=== PATIENT | female | born 1980 | race Caucasian/White ===

== ENCOUNTER → 2021-08-26 09:11 | Outpatient (CLI) | payer BC, SELFPAY ==
--- NOTE | ~2021-08-26 | MMUS_ITS ---
EXAMINATION: MM diagnostic tatyana BI w daniel, US breast BI complete HISTORY: Palpable left breast abnormality by clinical examination.. TECHNIQUE: Additional 3-D tomosynthesis images of the breasts were performed and synthetic 2-D images were generated. CAD analysis was submitted and interpreted. High resolution bilateral complete breas t ultrasound was performed. COMPARISON: None BREAST PARENCHYMAL COMPOSITION: The breasts are heterogenously dense, which may obscure small masses FINDINGS: MAMMOGRAPHIC FINDINGS: There is a focal asymmetry centrally in the right breast, middle third, seen on CC view. There are no suspicious masses, calcifications or architectural distortion in the left breast to suggest malignan cy. ULTRASOUND: Complete bilateral US of all 4 quadrants of the breasts and retroareolar region was reviewed. Right breast ultrasound: At 11:00, 6 cm from the nipple there is a 5 mm hypoechoic oval mass with enh anced through transmission and no internal vascularity, likely corresponding to the mammographic asym metry. This is likely benign. No suspicious solid or cystic masses of the left breast. IMPRESSION: 1. Probable benign 5 mm right breast mass at 11:00, 6 cm from the nipple. No evidence for malignancy in the left breast. 2. Recommend 6 month follow-up diagnostic right mammogram and ultrasound BI-RADS category 3, probably benign findings. Reviewed, dictated and finalized at location A. IMPRESSION: 1. Probable benign 5 mm right breast mass at 11:00, 6 cm from the nipple. No ev idence for malignancy in the left breast. 2. Recommend 6 month follow-up diagnostic right mammogram and ultrasound BI-RADS category 3, probably benign findings.
== END ==
PROVIDERS: PCP Family Medicine; Visit Provider Nurse Practitioner
DX: N64.59 Other signs and symptoms in breast (principal); R92.8 Other abnormal and inconclusive findings on diagnostic imaging of breast
CPT/HCPCS: 76641; 77062; 77066; G0279

== ENCOUNTER → 2021-09-08 10:07 | Outpatient (CLI) | payer BC, SELFPAY ==
--- NOTE | ~2021-09-08 | XR_ITS ---
XR shoulder RT min 2V DATE: 09/08/2021 10:48 INDICATION: Right shoulder pain TECHNIQUE: 4 views COMPARISON: None FINDINGS: No fracture or dislocation, periosteal reaction or bone destruction. Normal alignment at th e acromioclavicular and glenohumeral joints. No abnormal soft tissue calcification. IMPRESSION: Negative Reviewed, dictated and finalized at location B. IMPRESSION: Negative
== END ==
PROVIDERS: PCP Family Medicine
DX: M25.511 Pain in right shoulder (principal)
CPT/HCPCS: 73030

== ENCOUNTER → 2022-03-14 09:17 | Outpatient (CLI) | payer BC, SELFPAY ==
--- NOTE | ~2022-03-14 | MMUS_ITS ---
EXAMINATION: MM diagnostic tatyana RT w daniel, US breast RT limited HISTORY: Six-month follow-up of probable benign 5 mm right breast mass at 11:00 6 cm from nipple TECHNIQUE: Full field and spot right 3-D tomosynthesis images were performed and synthetic 2-D images were generated. CAD analysis was submitted and interpreted. High resolution upper inner and upper ou ter quadrant right breast ultrasound was performed. COMPARISON: 08/26/2021 bilateral screening mammogram BREAST PARENCHYMAL COMPOSITION: There are scattered areas of fibroglandular density. FINDINGS: MAMMOGRAPHIC FINDINGS: No suspicious mammographic mass or architectural distortion, malignant calcification, skin thickening or retraction of the right breast is detected. ULTRASOUND: 11:00 6 cm from nipple: 3.3 x 3.9 x 4.5 mm sonolucency with through transmission posterior enhancemen t, no internal vascularity, most likely a small cyst or benign mass this is stable since 08/26/2021. 10:00 1 cm from nipple: Parallel circumscribed 1.9 x 4.1 x 2.5 mm sonolucency consistent with small c yst 9:00 3 cm from nipple: Parallel circumscribed 2.2 x 7.1 x 4.1 mm sonolucency, without posterior shado wing, benign in appearance IMPRESSION: 1. Benign findings. No mammographic evidence of malignancy 2. Routine annual mammographic screening is recommended BI-RADS Category 2: Benign finding(s). Reviewed, dictated and finalized at location A. [employer] IMPRESSION: 1. Benign findings. No mammographic evidence of malignancy 2. Routine annual mammographic screening is recommended BI-RADS Category 2: Benign finding(s).
== END ==
PROVIDERS: PCP Family Medicine; Visit Provider Obstetrics & Gynecology Gynecology
DX: N63.10 Unspecified lump in the right breast, unspecified quadrant (principal); R92.8 Other abnormal and inconclusive findings on diagnostic imaging of breast
CPT/HCPCS: 76642; 77061; 77065; G0279

== ENCOUNTER 2022-05-26 14:44 | Outpatient (CLI) | payer BC, SELFPAY ==
--- NOTE | ~2022-05-26 | XR_ITS ---
EXAMINATION: XR_[id number]_CR DATE: 05/26/2022 15:13 INDICATION: Neck pain. TECHNIQUE: 4 views of cervical spine were obtained. COMPARISON: None. FINDINGS: There is mild kyphosis of cervical spine. There is 7 degrees levocurvature of cervicothorac ic spine. Vertebral body heights and intervertebral disc heights are normal. There is multilevel mild facet joint osteoarthritis. No central canal stenosis or prevertebral soft tissue swelling. IMPRESSION: 1. Mild cervical spondylosis. Reviewed, dictated and finalized at location A.
== END 2022-05-26 14:45 | disposition home or self-care (01) ==
LOC: ANHIMG 14:51
PROVIDERS: PCP Family Medicine
DX: M47.892 Other spondylosis, cervical region (principal)
CPT/HCPCS: 72040

== ENCOUNTER → 2022-12-01 10:13 | Outpatient (CLI) | payer BC, SELFPAY ==
--- NOTE | ~2022-12-01 | US_ITS ---
Pelvic ultrasound. Clinical History: Pelvic pain Technique: Realtime transabdominal and transvaginal scanning of the pelvis was performed. Color flow Doppler and Doppler spectral analysis were performed. Findings: The uterus is anteverted. The endometrial stripe has a thickness of 4 mm. No focal mass is identified. The right ovary measures 1.9 x 2.2 x 1.9 cm. No significant right ovarian or adnexal mass is seen. The left ovary measures 2.5 x 2.5 x 2.4 cm. No significant left ovarian or adnexal mass is seen. Vascular flow present in both ovaries on Doppler spectral analysis. There is no evidence of free fluid in the cul de sac. Impression: Unremarkable pelvic ultrasound. Reviewed, dictated and finalized at [facility]. Impression: Unremarkable pelvic ultrasound.
== END ==
PROVIDERS: PCP Family Medicine; Visit Provider Nurse Practitioner
DX: R10.2 Pelvic and perineal pain (principal)
CPT/HCPCS: 76856

== ENCOUNTER 2022-12-24 16:41 | Emergency (ER) | payer BC, SELFPAY ==
--- NOTE | ~2022-12-24 | XR_ITS ---
EXAMINATION: XR chest 2V DATE: 12/24/2022 20:15 INDICATION: Cough TECHNIQUE: PA and lateral views of the chest were obtained. COMPARISON: None FINDINGS: Air-fluid level within a large hiatal hernia. Lungs are clear with no focal airspace opacities, pulmo nary edema, pleural effusion or pneumothorax. Heart size is normal. Visualized bones and soft tissues are unremarkable. IMPRESSION: 1. Large hiatal hernia. No acute cardiopulmonary disease. Reviewed, dictated and finalized at location A.
--- NOTE | ~2022-12-24 | CT_ITS ---
EXAMINATION: CT abdomen pelvis w con DATE: 12/24/2022 20:24 INDICATION: Abdominal pain TECHNIQUE: Computed tomography (CT) of the abdomen and pelvis was performed with 100 mL Omnipaque-350 intravenous contrast. Automated exposure control and iterative reconstruction technique were employe d. The dose-length product was 1067.35 mGy-cm. COMPARISON: None FINDINGS: Large hiatal hernia containing small amount of fluid in the majority of the stomach with organoaxial volvulus. There is compressive atelectasis in the adjacent anteromedial left lower lobe. Heart size i s normal. No pericardial or pleural effusion. Liver, gallbladder, pancreas, bilateral adrenal glands and right kidney are normal. 2 mm nonobstructing stone at a lower pole calyx of the left kidney. Rosie ral splenic calcifications consistent with old granulomatous disease. Bladder, anteverted uterus and bilateral adnexa are unremarkable. Bowels including the appendix are normal. Tiny fat-containing umbi lical hernia. No free intraperitoneal gas or fluid. No pathologically enlarged abdominal or pelvic ly mphadenopathy. Bone island at the right femoral neck. Moderate osteoarthritis at the bilateral sacroi liac joints. IMPRESSION: 1. Small amount of fluid along side a large sliding-type hiatal hernia. 2. 2 mm nonobstructing left renal stone. Reviewed, dictated and finalized at location A.
[2022-12-24 16:53] VITALS: BP 141/78; PULSE 88; RESP 16; TEMP 36.2; O2SAT 100
[2022-12-24 17:10] LABS: Basophils Percent Auto 0.4 % (0.2-1.2); Eosinophils Absolute Auto 0.4 K/mm3 (0-0.3); Eosinophils Percent Auto 3.5 % (0-4.4); Hematocrit 38.7 % (37.0-47.0); Hemoglobin 12.1 g/dL (12.0-15.0); Immature Granulocyte Absolute 0.03 K/mm3 (0.00-0.031); Immature Granulocyte Percent A 0.3 % (0-0.5); Lymphocytes Absolute Auto 3.25 K/mm3 (0.9-3.2); Lymphocytes Percent Auto 31.3 % (18.3-44.2); Mean Corpuscular HGB Conc 31.3 g/dl (32-36); Mean Corpuscular Hemoglobin 26.4 pg (26-34); Mean Corpuscular Volume 84.5 fl (80-100); Mean Platelet Volume 11.4 fl (7.4-10.4); Monocytes Absolute Auto 0.5 K/mm3 (0.1-0.6); Monocytes Percent Auto 4.9 % (2.6-8.5); Neutrophils Absolute Auto 6.2 K/mm3 (1.3-6.7); Neutrophils Percent Auto 59.6 % (45.5-73.1); Platelet Count Result 302 k/mm3 (150-375); Red Blood Count 4.58 M/mm3 (4.2-5.4); Red Cell Distribution Width 14.5 % (11.5-14.5); White Blood Count 10.4 K/mm3 (4.5-10.0)
[2022-12-24 17:23] LABS: Appearance Urine Cloudy (Clear); Bacteria Urine Rare /hpf; Bilirubin Urine Negative (Negative); Blood Urine Negative (Negative); Color Urine Yellow (Yellow); Glucose Urine UA Negative (Negative); Ketones Urine Negative (Negative); Leukocyte Esterase Ur 2+ LEU/UL (Negative); Need Manual Microscopic Reviewed; Nitrate Urine Negative (Negative); Non Pathogenic Casts 0-2; Protein Urine Negative (Negative); Specific Grav Ur 1.025 (1.001-1.035); Squamous Epithelial Cell Urine Moderate /hpf (Few); WBC Urine 21-50 /hpf
[2022-12-24 17:24] LABS: Alanine Aminotransferase 20 U/L (6-35); Albumin Level 4.4 g/dL (3.5-5.1); Alkaline Phosphatase 96 U/L (38-126); Anion Gap 8 mmol/L (8-16); Aspartate Amino Transferase 20 U/L (14-36); Bilirubin,Total 0.6 mg/dL (0.2-1.3); Blood Urea Nitrogen 13 mg/dL (7-17); Calcium 9.2 mg/dL (8.4-10.2); Carbon Dioxide 28 mmol/L (22-30); Chloride 103 mmol/L (98-107); Estimated CRCL calculation 84 ml/min; Estimated Glomerular Filt Rate > 60; Glucose 95 mg/dL (65-110); Lipase 113 U/L (23-300); Potassium 3.7 mmol/L (3.4-5.0); Sodium 139 mmol/L (137-145)
[2022-12-24 17:26] LABS: Add Urine Microscopic? YES
[2022-12-24 18:51] VITALS: BP 133/104; PULSE 78; RESP 18; TEMP 36.4; O2SAT 100
--- NOTE | 2022-12-24 19:10 | ED.ABDPAIN ---
HPI - Abdominal Pain General Chief Complaint: Abdominal Pain Stated Complaint: ABD PAIN Time Seen by Provider: 12/24/22 18:54 History of Present Illness HPI narrative: Patient is a 42-year-old female with history of psoriasis on [place] here with abdominal pain. She states she has been having some vague upper abdominal pains over the last 1 month. Over the last few days it seems to have significantly worsened. She notes the pain is worse with eating and is a sharp pain. It is associated with some burning as well. She notes that she saw her primary care doctor on Monday for this and may have coordinated an ultrasound for early next week to evaluate her gallbladder. They also advised her to begin taking stool softeners. She did have a bowel movement yesterday and this seemed to have helped the pain slightly. She denies any prior abdominal surgeries. No fever or chills. No urinary symptoms. She does note that she has some worsening pain with deep breath in her abdomen and she does have a mild associated non productive cough. This seems to have began up recently over the last few days. Related Data Allergies Allergy/AdvReac Type Severity Reaction Status Date / Time latex Allergy Mild Rash Verified 12/24/22 18:52 HAY Allergy Mild Unknown Uncoded 12/24/22 18:52 ASPERTAME AdvReac MIGRAINE Uncoded 12/24/22 18:52 MSG AdvReac MIGRAINE Uncoded 12/24/22 18:52 Review of Systems Review of Systems: All systems reviewed & are unremarkable except as noted in HPI and below Exam Narrative: GENERAL: Well-appearing, well-nourished, and in no acute distress. HEAD: Normocephalic, atraumatic. EYES: PERRLA and EOMI. ENT: Nares clear. Mucous membranes moist. NECK: Supple. CHEST: Clear to auscultation. No respiratory distress. HEART: Regular rate and rhythm. Normal peripheral pulses. ABDOMEN: Soft, tenderness in the epigastrium, positive Cash sign, no McBurney point tenderness. No rebound or guarding. No suprapubic pain, no CVA tenderness. EXTREMITIES: Normal range of motion. No edema. SKIN: Warm, dry, no rash. NEURO: No focal deficits. Alert and oriented x3. PSYCH: Normal mood and affect. Course Course Emergency Course: Chart review performed. Patient here with abdominal pain x 6 months, recently worsened over the last 1 week. Triage vitals normal. No prior visits in our system. Triage workup reviewed, WBC 10.4, electrolytes normal, normal LFTs, UA consistent with UTI. Bedside test is negative. Patient seen evaluated, in no acute distress. She does have epigastric tenderness as well as positive Cash sign. Despite normal lab work will do CT abdomen pelvis to evaluate for possible intra-abdominal pathology including biliary disease. At this hour we do not have ultrasound capabilities so will defer to CT scan. Pain medication, IV fluids, Pepcid have all been ordered. CT abdomen pelvis shows large hit hiatal hernia with small amount of fluid in the majority of the stomach with concern for organoaxial volvulus. I did speak with our on-call general surgeon, Dr. Cowan. He recommends transfer to higher level of care. Spoke with [facility] transfer line. Dr. Fajardo, concrete carpenter for Acute Care Surgery recommends ED to ED transfer. Spoke with Dr. Alex, ED physician who accepts patient for transfer. NGT to be placed prior to transfer. Significant resistance met with advancement of NGT with nursing. Procedure aborted. Nose bleed present. Will monitor. Patient transferred to [place] [facility] to ED via EMS. Vital Signs Vital signs: Vital Signs Temperature 97.2 F L 12/24/22 16:53 Pulse Rate 88 12/24/22 16:53 Respiratory Rate 16 12/24/22 16:53 Blood Pressure 141/78 H 12/24/22 16:53 Pulse Oximetry 100 12/24/22 16:53 Oxygen Delivery Room Air 12/24/22 16:53 Temperature 97.5 F L 12/24/22 18:51 Pulse Rate 78 12/24/22 18:51 Respiratory Rate 18 12/24/22 18:51 Blood Pressure 133/104 H 12/24/22 18:51 Pulse
--- NOTE | 2022-12-24 19:18 | PC.NURSE ---
Assumed care of pt from MALIKA Ibrahim at this time.
[2022-12-24] MEDS: ONDANSETRON INJ 4 MG/2 ML VIAL IV PUSH ×2 (19:57→23:32)
[2022-12-24] MEDS: SODIUM CHLORIDE 0.9% IV 1,000 ML 999 ML IV CONT (19:57)
[2022-12-24] MEDS: FAMOTIDINE 20 MG/2 ML VIAL 40 MG IV PUSH (19:58)
[2022-12-24 20:38] LABS: Influenza A QL RT-PCR Negative (Negative); Influenza B QL RT-PCR Negative (Negative); RSV RNA, RT-PCR Negative (Negative); SARS-CoV-2 RNA PCR Negative (Negative)
[2022-12-24 22:21] LABS: Lactic Acid Reflex 0.8 mmol/L (0.7-2.0)
[2022-12-24 23:15] VITALS: BP 159/82; PULSE 102; RESP 20; O2SAT 98
[2022-12-24] MEDS: MORPHINE SULFATE (*CRX) 4 MG/ML INJ IV PUSH (23:33)
[2022-12-24 23:39] VITALS: BP 153/82; PULSE 94; RESP 14; O2SAT 99
--- NOTE | 2022-12-24 23:43 | PC.NURSE ---
Report called to MALIKA Funk at [facility] at this time. [place] here to xfr pt.
--- NOTE | 2022-12-24 23:58 | PC.NURSE ---
Addendum entered by Richie Nixon RN 12/25/22 00:12: and verbalized it was okay to not place NG tube. Original Note: This RN and MALIKA Messina attempted NG tube x2 times. Resistance met x2 times. EDP aware and vreb
== END 2022-12-24 23:45 | disposition short-term general hospital (02) ==
PROVIDERS: Emergency Medicine; Emergency Provider Student in an Organized Health Care Education/Training Program; PCP Family Medicine
DX: K31.89 Other diseases of stomach and duodenum (principal); K44.9 Diaphragmatic hernia without obstruction or gangrene; Z20.822 Contact with and (suspected) exposure to COVID-19; L40.9 Psoriasis, unspecified; N20.0 Calculus of kidney
CPT/HCPCS: 36415; 71046; 74177; 80053; 81001; 81025; 83605; 83690; 85025; 87086; 87088; 87637; 96361; 96374; 96375; 96376; 99285; J2270; J2405; J7030; Q9967

== ENCOUNTER 2023-04-26 12:49 | Outpatient (CLI) | payer BC, SELFPAY ==
--- NOTE | ~2023-04-26 | CT_ITS ---
CT of the Abdomen: Indication: Left upper quadrant pain Technique: 2.5 mm axial scans were obtained through the abdomen following intravenous administration of 100 cc of Omnipaque 350. Dose reduction technique was used on this scan by utilizing automated ex posure control and iterative reconstruction technique. The dose-length product (DLP) was 583.55 mGy-c m. COMPARISON: 12/24/2022 Findings: Scans through the lung bases are unremarkable. Probable very small hiatal hernia present. The liver, spleen, pancreas, gallbladder, adrenals and right kidney are within normal limits. Punctat e nonobstructing left renal stone present. No evidence of aortic aneurysm. No lymphadenopathy. Visualized bowel loops are unremarkable. No ascites. Impression: Probable very small hiatal hernia. Punctate nonobstructing left renal stone. Reviewed, dictated and finalized at location . [employer]CHIV[employer] Impression: Probable very small hiatal hernia. Punctate nonobstructing left renal stone.
== END 2023-04-26 12:50 | disposition home or self-care (01) ==
LOC: ANHIMG 12:54
PROVIDERS: PCP Family Medicine; Visit Provider Family Medicine
DX: N20.0 Calculus of kidney (principal); Z98.890 Other specified postprocedural states
CPT/HCPCS: 74160; Q9967

== ENCOUNTER 2024-07-19 14:58 | Outpatient (CLI) | payer BC, SELFPAY ==
--- NOTE | ~2024-07-19 | CT_ITS ---
CT abdomen w con Ordering provider: Bren Navarrete History: 44 years Female with . HISTORY OF HIATAL HERNIA . Comparison: April 26, 2023 Technique: CT abdomen with IV and without oral contrast. Automated exposure control and iterative rec onstruction technique were employed. The dose-length product was 504.79 mGy-cm. 100 mL Omnipaque 350 was given IV. Findings: VISUALIZED LOWER CHEST: Normal. UPPER ABDOMINAL ORGANS: Liver: Hepatomegaly. Gallbladder: Normal. Spleen: Normal. Benign calcifications. Stomach/duodenum: Small sliding hiatus hernia. Pancreas: Normal. Adrenals: Normal. Kidneys: Tiny stone in the left kidney lower pole. BOWEL AND MESENTERY: Colon: No evidence of diverticulitis in the visualized bowel. Fecal material is noted suggestive of c onstipation.. Small Bowel: Normal. No obstruction. Peritoneum/mesentery: No free air or free fluid. No mesenteric lymphadenopathy. RETROPERITONEUM: Normal aorta. No retroperitoneal lymphadenopathy. MUSCULOSKELETAL: Superficial soft tissues: The superficial soft tissues are normal. Bones: Normal spine. IMPRESSION: 1. Sliding hiatus hernia. 2. Constipation. No evidence of diverticulitis or intestinal obstruction the visualized bowel. 3. Hepatomegaly. Reviewed, dictated and finalized at location A. IMPRESSION: 1. Sliding hiatus hernia. 2. Constipation. No evidence of diverticulitis or intestinal obstruction the v isualized bowel. 3. Hepatomegaly.
== END 2024-07-19 14:59 | disposition home or self-care (01) ==
PROVIDERS: PCP Family Medicine
DX: K44.9 Diaphragmatic hernia without obstruction or gangrene (principal); R16.0 Hepatomegaly, not elsewhere classified; K59.00 Constipation, unspecified; Z98.890 Other specified postprocedural states
CPT/HCPCS: 74160; Q9967